=== PATIENT | female | born 1970 | race African-American/Black ===

== ENCOUNTER 2024-07-06 11:07 | Emergency (ER) | payer BC ==
[~2024-07-06] VITALS: Ht 167.6 cm; Wt 96.0 kg
[2024-07-06 11:12] VITALS: BP 147/88; PULSE 77; RESP 18; TEMP 98.4; O2SAT 99
[2024-07-06 11:51] LABS: CARBON DIOXIDE 20 mEq/L (21-32); CHLORIDE 107 mEq/L (98-107); POTASSIUM 3.7 mEq/L (3.5-5.1); SODIUM 137 mEq/L (136-145)
[2024-07-06 11:52] LABS: CALCIUM 9.8 mg/dL (8.7-10.4)
[2024-07-06 11:56] LABS: CREATININE 0.7 mg/dL (0.6-1.0)
[2024-07-06 11:57] LABS: GLUCOSE 141 mg/dL (70-105); UREA NITROGEN BLOOD 9 mg/dL (9-23)
[2024-07-06 11:58] LABS: ALANINE AMINOTRANSFERASE 33 IU/L (10-49)
[2024-07-06 11:59] LABS: ALBUMIN 4.9 g/dL (3.2-4.8); ASPARTATE AMINOTRANSFERASE 24 IU/L (<34); BILIRUBIN DIRECT 0.1 mg/dL (<=3.0); BILIRUBIN TOTAL 0.5 mg/dL (0.1-1.0); PROTEIN TOTAL 7.5 g/dL (6.0-8.3)
[2024-07-06 12:00] LABS: BASOPHILS % 0.5 % (0.0-2.0); HEMATOCRIT. 39.6 % (36.0-48.0); HEMOGLOBIN. 13.3 g/dL (12.0-16.0); LYMPHOCYTES % 33.5 % (20.0-50.0); MEAN CORPUSCULAR HEMOGLOBIN 29.8 pg (28.0-32.0); MEAN CORPUSCULAR HGB CONC 33.6 g/dL (31.0-37.0); MEAN CORPUSCULAR VOLUME 88.6 fL (81.0-99.0); MEAN PLATELET VOLUME 6.4 fl (7.4-10.4); MONOCYTES % 5.9 % (2.0-8.0); NEUTROPHILS % 59.1 % (40.0-76.0); PLATELET 353 x1000/uL (130-400); RED BLOOD CELL COUNT 4.47 mill/uL (4.2-5.4); RED CELL DISTRIBUTION WIDTH 12.4 % (11.6-14.6); WHITE BLOOD COUNT 7.5 x1000/uL (4.5-11.0)
[2024-07-06 12:19] LABS: TROPONIN I HIGH SENSITIVITY < 4 ng/L (3.0-34)
[2024-07-06 12:24] VITALS: TEMP 36.22512; O2SAT 95
[2024-07-06] MEDS: SODIUM CHLORIDE 0.9% 1,000 ML IV ONE (12:34)
[2024-07-06] MEDS: ONDANSETRON HCL 4MG/2ML INJ IV ONE (12:34)
[2024-07-06] MEDS: MECLIZINE 25MG TABLET PO ONE (15:53)
[2024-07-06] MEDS ORDERED: MECL-299 MT (15:55)
[2024-07-06 17:42] LABS: CLARITY URINE CLEAR (CLEAR); COLOR URINE YELLOW (YELLOW); GLUCOSE URINE NEGATIVE (NEGATIVE); KETONES URINE TRACE (NEGATIVE); LEUKOCYTE ESTERASE URINE 3+ (NEGATIVE); NITRITE URINE NEGATIVE (NEGATIVE); OCCULT BLOOD URINE NEGATIVE (NEGATIVE); PROTEIN URINE NEGATIVE (NEGATIVE); SPECIFIC GRAVITY URINE 1.012 (1.005-1.030); UROBILINOGEN URINE 0.2 E.U./dL (0.2-1.0)
[2024-07-06 17:54] LABS: BACTERIA URINE 1+; RBC URINE 0-2 /hpf (0-2); SQUAMOUS EPITHELIAL CELL URINE 2+ /lpf (RARE/1+); YEAST URINE NONE SEEN
== END 2024-07-06 16:10 | disposition home or self-care (01) ==
LOC: ER 12:55
DX: R42 Dizziness and giddiness (principal); Z98.890 Other specified postprocedural states
CPT/HCPCS: 80076; 80048; 81003; 82962; 83880; 85025; 84484; 36415; 71045; 70450; 93005; 96361; 96374; 99285; J8597; J2405; J7030; Z7610 ×3